=== PATIENT | female | born 1955 ===

== ENCOUNTER 2017-02-11 14:48 | Emergency (ER) | payer OTHER ==
[2017-02-11 15:02] VITALS: BP 135/80
--- NOTE | 2017-02-11 15:20 | UC ---
Skin Complaint HPI - HPI Summary HPI Summary: Pt presents with c/o sudden onset of pain and redness in right hand, dorsal aspect at base of thumb that began yesterday with small "lump" and over the last 24 hours has increased in swelling and tenderness. Pt denies injury or trauma. - History of Current Complaint Hx Obtained From: Patient ?: No Onset/Duration: Sudden Onset, Worse Since - onset Skin Exposure Onset/Duration: Days Ago - 1 Timing: Constant Onset Severity: Mild Current Severity: Moderate Location: Discrete - right hand dorsal side, base of thumb and distal wrist Character: Swelling, Pain, Redness Aggravating: Touch Alleviating: Unknown Associated Signs & Symptoms: Positive: Tenderness <Effie Elder NP - Last Filed: 02/11/17 15:45> <Elvia Boo - Last Filed: 02/11/17 19:39> - History of Current Complaint Chief Complaint: UCUpperExtremity Time Seen by Provider: 02/11/17 15:05 Stated Complaint: RIGHT HAND PAIN - Allergy/Home Medications Allergies/Adverse Reactions: Allergies Allergy/AdvReac Type Severity Reaction Status Date / Time Codeine AdvReac Abdominal Verified 02/11/17 15:02 Pain Home Medications: Home Medications Methyl Salicylate-Menthol 1 applic TRANSDERM SEE INSTRUCTIONS PRN 02/11/17 [ History] Review of Systems Constitutional: Negative Skin: Other - erythema tenderness, swelling Eyes: Negative ENT: Negative Respiratory: Negative Cardiovascular: Negative Gastrointestinal: Negative Genitourinary: Negative Motor: Decreased ROM - right hand/wrist secondary to pain Neurovascular: Negative Musculoskeletal: Arthralgia, Decreased ROM - right hand/wrist, Edema - right hand/wrist, Myalgia Neurological: Negative Psychological: Negative Is Patient Immunocompromised?: Yes All Other Systems Reviewed And Are Negative: Yes <Effie Elder NP - Last Filed: 02/11/17 15:45> PMH/Surg Hx/FS Hx/Imm Hx Previously Healthy: Yes - Surgical History Surgical History: Yes Surgery Procedure, Year, and Place: C-SECT - Family History Known Family History: Positive: Cardiac Disease - Social History Occupation: Retired Lives: With Family Alcohol Use: None Substance Use Type: None Smoking Status (MU): Never Smoked Tobacco Have You Smoked in the Last Year: No <Effie Elder NP Last Filed: 02/11/17 15:45> Physical Exam Triage Information Reviewed: Yes Appearance: Well-Appearing Vital Signs: Initial Vital Signs Temp 98.7 F 02/11/17 14:55 Pulse 84 02/11/17 14:55 Resp 22 02/11/17 14:55 BP 135/80 02/11/17 14:55 Pulse Ox 98 02/11/17 14:55 Eye Exam: Normal ENT Exam: Normal Neck exam: Normal Respiratory Exam: Normal Cardiovascular Exam: Normal Musculoskeletal Exam: Other Musculoskeletal: Positive: ROM Limited @ - right hand /wrist, Edema @ Neurological Exam: Normal Psychological Exam: Normal Skin Exam: Other - erythema, right hand/wrist <Effie Elder NP - Last Filed: 02/11/17 15:45> Vital Signs: Initial Vital Signs Temp 98.7 F 02/11/17 14:55 Pulse 84 02/11/17 14:55 Resp 22 02/11/17 14:55 BP 135/80 02/11/17 14:55 Pulse Ox 98 02/11/17 14:55 <Elvia Boo - Last Filed: 02/11/17 19:39> Course/Dx - Course Course Of Treatment: I discussed with the pt the diagnosis of gout. I also discussed with a pt that if the affected area does ot improve to follow up with their PCP as soon as needed. - Differential Diagnoses - Skin Complaint Differential Diagnoses: Cellulitis, Other - gout - Diagnoses Provider Diagnoses: gout <Effie Elder NP - Last Filed: 02/11/17 15:45> Discharge <Effie Elder NP - Last Filed: 02/11/17 15:45> <Elvia Boo - Last Filed: 02/11/17 19:39> - Discharge Plan Condition: Stable Disposition: HOME Prescriptions: Colchicine* [Colcrys*] 0.6 mg PO DAILY #3 tab Ibuprofen TAB* [Motrin TAB* 600 MG] 600 mg PO Q8H PRN #15 tab PRN Reason: Pain Patient Education Materials: Low Purine Diet (ED), Gout (ED) Referrals: [facility] [place] [facility]FERR[facility] [Outside] Additional Instructions: Please follow up with your PCP as soon as possible. Please continue with routine health care screenings on a yearly basis. Attestation Statement User Type: Provider - I was available for consult. This patient was seen by the JAMAL. The patient was not presented to, seen by, or examined by me. -Janet <Elvia Boo - Last Filed: 02/11/17 19:39>
== END 2017-02-11 15:31 | disposition home or self-care (01) ==
LOC: UCCORT 14:48
DX: M10.9 Gout, unspecified (principal); Z88.5 Allergy status to narcotic agent
CPT/HCPCS: 99202; G0463